=== PATIENT | male | born 1960 | race Caucasian/White ===

== ENCOUNTER → 2020-05-06 | Outpatient (CLI) | payer OTHER ==
[~2020-05-06] MED LIST: AMLODIPINE BESY10 MG PO; CARVEDILOL3.125 MG PO; CATAPRES 0.1MG0.1 MG PO; NORCO 5-325 TA1 EACH PO; NORCO 7.5-3251 EACH PO; ZYLOPRIM300 MG PO
== END ==
LOC: MRI 07:53
DX: K76.9 Liver disease, unspecified (principal); M54.2 Cervicalgia; K56.1 Intussusception; N20.0 Calculus of kidney; K63.89 Other specified diseases of intestine
CPT/HCPCS: 36415; 82565; Q9967

== ENCOUNTER → 2020-05-10 | Outpatient (CLI) | payer OTHER | LOC: MRI 11:08 | DX: M54.2 Cervicalgia (principal); M47.812 Spondylosis without myelopathy or radiculopathy, cervical region; M48.02 Spinal stenosis, cervical region | CPT/HCPCS: 72141 ==

== ENCOUNTER → 2020-05-25 | Outpatient (CLI) | payer OTHER | LOC: SLEEP 10:46 | DX: R29.818 Other symptoms and signs involving the nervous system (principal) | CPT/HCPCS: 95810 ==